=== PATIENT | male | born 1990 | race Two or more races ===

== ENCOUNTER 2018-05-20 16:51 | Emergency (ER) | payer OTHER ==
[~2018-05-20] VITALS: Ht 185.4 cm; Wt 95.3 kg
[2018-05-20 16:52] VITALS: BP 138/84
--- NOTE | 2018-05-20 17:38 | Emergency Room Report ---
History of Present Illness General Chief Complaint: Behavioral Complaint Source: Patient Present Illness HPI 27-year-old male presents emergency department requesting evaluation for incident of having transient palpitations 3 days ago. Patient also reports that this occurred after he was smoking meth. Patient denies previous cardiac history. Denies cough, wheezing, or recent URI. Patient states he is not prescribed any medications and was only previously diagnosed with some depression a few years ago and asthma. He denies SI or HI. Denies visual or auditory hallucinations. He denies pain at this time denies shortness of breath. Patient describes episode of palpitations lasting less than 1 minute where he felt his "heart pounding very hard." Denies LOC, AMS, dizziness, Changes in Vision, Sensation, paresthesias, or a sudden severe headache. Allergies: Coded Allergies: No Known Allergies (Unverified , 05/20/18) Patient History Past Medical History: see triage record Past Surgical History: none Pertinent Family History: none Social History: Reports: drug use Reviewed Nursing Documentation: PMH: Agreed; PSxH: Agreed Nursing Documentation-PMH Past Medical History: No History, Except For Hx Asthma: Yes Review of Systems All Other Systems: negative except mentioned in HPI Physical Exam Vital Signs Date Time Temp Pulse Resp B/P (MAP) Pulse Ox O2 Delivery O2 Flow Rate FiO2 05/20/18 16:45 98.9 88 16 138/84 100 Room Air 99.0 Sp02 EP Interpretation: reviewed, normal General Appearance: no apparent distress, alert, GCS 15, non-toxic Head: normocephalic, atraumatic Eyes: bilateral eye normal inspection, bilateral eye PERRL ENT: hearing grossly normal, normal voice Neck: full range of motion Respiratory: chest non-tender, lungs clear, normal breath sounds, no respiratory distress, no wheezing, speaking full sentences Cardiovascular #1: regular rate, rhythm, no edema, normal capillary refill Gastrointestinal: non tender, soft Musculoskeletal: back normal, gait/station normal, normal range of motion, non- tender Neurologic: alert, oriented x3, responsive, motor strength/tone normal, sensory intact, normal gait, speech normal, grossly normal Psychiatric: judgement/insight normal, no suicidal/homicidal ideation, other - mildly flattened affect. Skin: normal color, no rash, warm/dry, well hydrated Lymphatic: no adenopathy Medical Decision Making PA Attestation Dr. lund is my supervising Physician whom patient management has been discussed with. Diagnostic Impression: Primary Impression: Palpitation Additional Impression: Encounter for medical screening examination ER Course 27-year-old male presents emergency department requesting evaluation for incident of having transient palpitations 3 days ago. Patient also reports that this occurred after he was smoking meth. Patient denies previous cardiac history. Denies cough, wheezing, or recent URI. Patient states he is not prescribed any medications and was only previously diagnosed with some depression a few years ago and asthma. He denies SI or HI. Denies visual or auditory hallucinations. He denies pain at this time denies shortness of breath. Patient describes episode of palpitations lasting less than 1 minute where he felt his "heart pounding very hard." Denies LOC, AMS, dizziness, Changes in Vision, Sensation, paresthesias, or a sudden severe headache. Ddx considered but are not limited to OR, arrhythmia, hypokalemia, anxiety reaction. Vital signs: are WNL, pt. is afebrile H&PE are most consistent with transient palpitations most likely secondary to methamphetamine use. ORDERS: - EK npm NSR no acute ST changes ED INTERVENTIONS: PT EDUCATION: On Stopping illicit drug use, patient was offered absence of these resources. DISCHARGE: At this time pt. is stable for d/c to home with close outpatient follow up with cardiology eval. Will provide printed patient care instructions, and any necessary prescriptions. Care plan and follow up instructions have been discussed with the patient prior to discharge. EKG Diagnostic Results EP Interpretation: Dr. Mac Rate: normal - 80 bpm Rhythm: NSR ST Segments: no acute changes ASA given to the pt in ED: No PA Scribe Text This Interpretation was scribed by DREW De La Torre. Last Vital Signs Date Time Temp Pulse Resp B/P (MAP) Pulse Ox O2 Delivery O2 Flow Rate FiO2 05/20/18 16:52 99.0 88 16 138/84 100 Room Air 99.0 Disposition: HOME, SELF-CARE Condition: Stable Referrals: [facility],REFERRING (PCP) Patient Instructions: Palpitations, [id number] Additional Instructions: Take medications as directed. Discontinue ILLICIT DRUG USE Follow up with a Primary Care Provider in 3-5 days for Cardiology referral. --Please review list of primary care clinics, if you do not already have a primary care provider Return sooner to ED if new symptoms occur, or current symptoms become worse. - Please note that this Emergency Department Report was dictated using Temporal Powers[employer] stapler technology software, occasionally this can lead to erroneous entry secondary to interpretation by the dictation equipment. Teresita De La Torre May 20, 2018 17:38
[2018-05-20 17:56] VITALS: BP 112/89
--- NOTE | 2018-05-21 19:32 | Cardiology Report ---
APPROVED REPORT EKG Measurement Heart [id number] Normal sinus rhythm with sinus arrhythmia Incomplete right bundle branch block Borderline ECG
== END 2018-05-20 18:12 | disposition home or self-care (01) ==
LOC: EDBD 16:51 → EMR 17:15
DX: R00.2 Palpitations (principal); J45.909 Unspecified asthma, uncomplicated
CPT/HCPCS: 93005; 99284